=== PATIENT | male | born 1995 | race Two or more races ===

== ENCOUNTER 2018-02-23 08:26 | Emergency (ER) | payer SELFPAY | END 2018-02-23 09:20 | disposition left against medical advice (07) | LOC: ED 08:26 | DX: Z02.89 Encounter for other administrative examinations (principal); B37.9 Candidiasis, unspecified ==

== ENCOUNTER 2018-03-21 11:40 | Emergency (ER) | payer BC ==
[2018-03-21 11:50] VITALS: BMI 23.6
[2018-03-21 11:52] VITALS: PULSE 78; RESP 18; TEMP 98.2; O2SAT 100
--- NOTE | 2018-03-21 12:24 | ED PDOC ---
Arrival/HPI - General Chief Complaint: ENT Problem Time Seen by Provider: 03/21/18 12:15 Historian: Patient - History of Present Illness Narrative History of Present Illness (Text): 03/21/18 12:21 23yo male with no PMHx who present with complaint of sore throat and productive cough. States she had blood streak sputum 3times and then having clear sputum currently with cough. He notes that symptoms started this morning. Denies fever , chills, SOB, diaphoresis, chest pain, sick contact, travel, weight loss. Past Medical History - Provider Review Nursing Documentation Reviewed: Yes - Cardiac Hx Cardiac Disorders: No - Pulmonary Hx Respiratory Disorders: No - Neurological Hx Neurological Disorder: No Hx Alzheimer's Disease: No - HEENT Hx HEENT Disorder: No - Renal Hx Renal Disorder: No - Endocrine/Metabolic Hx Endocrine Disorders: No - Hematological/Oncological Hx Blood Disorders: No - Integumentary Hx Dermatological Disorder: No - Musculoskeletal/Rheumatological Hx Musculoskeletal Disorders: No - Gastrointestinal Hx Gastrointestinal Disorders: No - Genitourinary/Gynecological Hx Genitourinary Disorders: No - Psychiatric Hx Psychophysiologic Disorder: No Hx Substance Use: No Family/Social History - Physician Review Nursing Documentation Reviewed: Yes Family/Social History: Unknown Family HX Smoking Status: Never Smoked Hx Alcohol Use: No Hx Substance Use: No Allergies/Home Meds Allergies/Adverse Reactions: Allergies No Known Allergies Allergy (Verified 03/21/18 11:56) Review of Systems - Physician Review All systems were reviewed & negative as marked: Yes - Review of Systems Constitutional: Normal Eyes: Normal ENT: Sore Throat Respiratory: Cough, Sputum. absent: SOB, Wheezing Cardiovascular: Normal Gastrointestinal: Normal Genitourinary Male: Normal Musculoskeletal: Normal Skin: Normal Neurological: Normal Endocrine: Normal Hemo/Lymphatic: Normal Psychiatric: Normal Physical Exam Vital Signs Reviewed: Yes Vital Signs Temp Pulse Resp BP Pulse Ox 03/21/18 13:20 78 18 122/71 100 03/21/18 11:52 98.2 F 78 18 123/64 100 Temperature: Afebrile Blood Pressure: Normal Pulse: Regular Respiratory Rate: Normal Appearance: Positive for: Well-Appearing, Non-Toxic, Comfortable Pain Distress: None Mental Status: Positive for: Alert and Oriented X 3 - Systems Exam Head: Present: Atraumatic, Normocephalic Pupils: Present: PERRL Extroacular Muscles: Present: EOMI Conjunctiva: Present: Normal Mouth: Present: Moist Mucous Membranes Pharnyx: Present: Normal. No: ERYTHEMA, EXUDATE, TONSILS ENLARGED, Peritonsilar Swelling, Uvular Deviation, Muffled/Hoarse Voice, Strider Neck: Present: Normal Range of Motion Respiratory/Chest: Present: Clear to Auscultation, Good Air Exchange. No: Respiratory Distress, Accessory Muscle Use, Wheezes, Decreased Breath Sounds, Rales, Retracting, Rhonchi Cardiovascular: Present: Regular Rate and Rhythm, Normal S1, S2. No: Murmurs Abdomen: No: Tenderness, Distention, Peritoneal Signs Back: Present: Normal Inspection Upper Extremity: Present: Normal Inspection. No: Cyanosis, Edema Lower Extremity: Present: Normal Inspection. No: Edema Neurological: Present: GCS=15, CN II-XII Intact, Speech Normal Skin: Present: Warm, Dry, Normal Color. No: Rashes Psychiatric: Present: Alert, Oriented x 3, Normal Insight, Normal Concentration Medical Decision Making ED Course and Treatment: 03/21/18 13:07 PT was hemodynamically stable in ED. He denied any PMDH. His exam was benign. His Centor score is zero. No abx is indicated at this time. He will be treated symptomatically. Referred to his PMD. TRT ED for any new or worsening symptoms - Lab Interpretations Lab Results: Lab Results 03/21/18 12:05: Grp A Beta Strep Ag Negative - RAD Interpretation Radiology Orders: 03/21/18 12:20 CHEST TWO VIEWS (PA/LAT) [RAD] Stat - Medication Orders Current Medication Orders: Discontinued Medications Guaifenesin/Dextromethorphan (Robitussin Dm) 10 ml PO ONCE STA Stop: 03/21/18 13:05 Last Admin: 03/21/18 13:15 Dose: 10 ml Disposition/Present on Arrival - Present on Arrival Any Indicators Present on Arrival: No History of DVT/PE: No History of Uncontrolled Diabetes: No Urinary Catheter: No History of Decub. Ulcer: No History Surgical Site Infection Following: None - Disposition Have Diagnosis and Disposition been Completed?: Yes Diagnosis: Cough, Sore throat Disposition: HOME/ ROUTINE Disposition Time: 13:10 Patient Plan: Discharge Patient Problems: Current Active Problems Problem Status Onset Cough Acute Sore throat Acute Condition: STABLE Discharge Instructions (ExitCare): Sore Throat in Adults, Cough, Adult (DC) Additional Instructions: Follow up with your doctor Return to ED for any new or worsening symptoms Prescriptions: Benzocaine/Menthol [Sore Throat Lozenges 15 mg-3.6 mg] 1 steffi MM BID #30 steffi Benzonatate [Tessalon Perle] 100 mg PO TID #30 capsule Referrals: at [facility] [place] [Outside] - Follow up with primary Forms: [employer] (Portuguese)
--- NOTE | 2018-03-21 12:48 | RAD ---
HISTORY: cough COMPARISON: No prior. TECHNIQUE: Chest PA and lateral FINDINGS: LUNGS: No active pulmonary disease. PLEURA: No significant pleural effusion identified. No pneumothorax apparent. CARDIOVASCULAR: Normal. OSSEOUS STRUCTURES: No significant abnormalities. VISUALIZED UPPER ABDOMEN: Normal. OTHER FINDINGS: None. IMPRESSION: No active disease.
[2018-03-21] MEDS ORDERED: guaiFENesin DM 200 mg-20 mg/10 ml UD PO STA (13:04)
[2018-03-21 13:21] VITALS: BP 122/71
== END 2018-03-21 13:22 | disposition home or self-care (01) ==
LOC: ED 11:40
DX: J02.9 Acute pharyngitis, unspecified (principal); R05 Cough

== ENCOUNTER 2018-08-03 21:06 | Emergency (ER) | payer BC ==
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
[2018-08-03 21:17] VITALS: BMI 22.2
[2018-08-03] MEDS ORDERED: TDAP Vaccine 0.5 mL Syr IM ONE (21:21)
[2018-08-03 23:17] VITALS: BP 123/65; PULSE 79; RESP 18; TEMP 97.6; O2SAT 97
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
== END 2018-08-03 23:45 | disposition home or self-care (01) ==
LOC: ED 21:06
DX: S01.112A Laceration without foreign body of left eyelid and periocular area, initial encounter (principal); Y08.89XA Assault by other specified means, initial encounter; Y92.9 Unspecified place or not applicable; Z23 Encounter for immunization